=== PATIENT | female | born 1945 | race Caucasian/White ===

== ENCOUNTER 2020-06-09 17:08 | Observation (INO) | payer MEDICARE, SELFPAY ==
[2020-06-09] VITALS (7 sets, daily range): BP systolic 130–160; BP diastolic 58–83; PULSE 72–82; RESP 17–20; TEMP 36.6–36.7; O2SAT 96–98; BMI 29.6; BMI 30.4
--- NOTE | 2020-06-09 17:10 | CT_ITS ---
PROCEDURE: CT HEAD/BRAIN WO CON CLINICAL INDICATION: headache Severe headache COMPARISON: No exams were available for comparison TECHNIQUE: Axial images obtained. All CT scans at the facility use one or more dose reduction, viz: automated exposure control, ma/kV adjustment per patient size (including targeted exams where dose is matched to indication, i.e. head), or iterative reconstruction technique. FINDINGS: No midline shift, mass effect, intracranial hemorrhage, hydrocephalus, or extra-axial fluid collection is evident. The calvarium has an unremarkable appearance. Postsurgical changes of the right mastoid sinus with mild mucosal thickening of the mastoid sinus. No sinus air-fluid level. IMPRESSION: 1. No acute intracranial findings. 2. Postsurgical changes with mild mucosal thickening of the right mastoid sinus Dictated by: Harrison Melgoza MD 06/09/2020 18:23 Electronically signed by Harrison Melgoza MD in [place] 06/09/2020 18:23
--- NOTE | 2020-06-09 17:21 | XR_ITS ---
PROCEDURE: XR CHEST PORTABLE CLINICAL INDICATION: cough Shortness of breath, smoker COMPARISON: CXR CHEST(2 VIEWS-NOT PORTABLE) from 05/30/2017 XR CHEST PORTABLE from 02/04/2020 FINDINGS: Cardiomegaly. Prior CABG. No evidence of CHF. There is increased density in retrocardiac region suggesting small hiatal hernia. The lungs are clear. IMPRESSION: No acute finding, see above Dictated by: Harrison Melgoza MD 06/09/2020 18:27 Electronically signed by Harrison Melgoza MD in [facility] 06/09/2020 18:27
--- NOTE | 2020-06-09 17:23 | HMH.EDGENADL ---
ED Disposition Clinical Impression: VERÓNICA (acute kidney injury) Urinary tract infection Qualifiers: Urinary tract infection type: acute cystitis Hematuria presence: without hematuria Qualified Code(s): N30.00 - Acute cystitis without hematuria Headache Qualifiers: Headache type: other headache syndrome Qualified Code(s): G44.89 - Other headache syndrome Disposition: Admitted as Observation Condition on Discharge: Good Referrals: Provider,Referral, [Referring] - Time of Disposition: 19:31 - Critical Care Critical Care Time: No Attestation: On 06/09/20, the high probability of a clinically significant, sudden or life threatening deterioration of the following system(s) required my full and direct attention, intervention and personal management. The time I documented below is in addition to time spent performing reported procedures but includes the following listed in this critical care notation. Medical Decision Making - Medical Records Medical records reviewed: Yes: I reviewed the patient's medical records. - Matt Inquiry Pt receiving controlled substance: No Vital Signs: 06/09/20 17:09 06/09/20 18:25 06/09/20 19:00 Temperature 98 F Temperature Source Oral Pulse Rate [Left Radial] 82 81 Respiratory Rate 18 20 Blood Pressure [Right Arm] 130/77 130/77 144/71 H Blood Pressure Mean [Right Arm] 94 94 95 Blood Pressure Source [Right Arm] Automatic Cuff Blood Pressure Position [Right Arm] Sitting Sitting 02 Sat by Pulse Oximetry 98 97 Oxygen Delivery Method Room Air Room Air 06/09/20 19:30 Temperature Temperature Source Pulse Rate [Left Radial] 75 Respiratory Rate 18 Blood Pressure [Right Arm] 136/60 Blood Pressure Mean [Right Arm] 85 Blood Pressure Source [Right Arm] Blood Pressure Position [Right Arm] 02 Sat by Pulse Oximetry 96 Oxygen Delivery Method Room Air - Lab Data Lab Results 06/09/20 17:15: WBC 10.5, RBC 4.24, Hgb 12.9, Hct 37.6, MCV 88.9, MCH 30.5, MCHC 34.3, RDW 15.0, Plt Count 163, MPV 8.3, Neut % (Auto) 68.5, Lymph % (Auto) 25.6, [place] % (Auto) 3.6, Eos % (Auto) 1.8, Baso % (Auto) 0.4, Neut # (Auto) 7.2, Lymph # (Auto) 2.7, [place] # (Auto) 0.4, Eos # (Auto) 0.2, Baso # (Auto) 0.0 06/09/20 17:15: Sodium 139, Potassium 4.5, Chloride 107, Carbon Dioxide 19 L, Anion Gap 17.5 H, BUN 29 H, Creatinine 1.70 H, Estimated Creat Clear 39, Estimated GFR 29 L, Est GFR ( Amer) 35 L, Glucose 134 H, Calcium 8.7, Total Bilirubin 0.3, AST 21, ALT 16, Alkaline Phosphatase 75, Total Creatine Kinase 72, Troponin I < 0.01, Total Protein 7.2, Albumin 4.2, Globulin 3.0, Albumin/Globulin Ratio 1.4 06/09/20 19:13: Urine Color Straw, Urine Appearance Cloudy, Urine pH 5.5, Ur Specific [place] 1.010, Urine Protein Negative, Urine Glucose (UA) Negative, Urine Ketones Negative, Urine Blood 2+, Urine Nitrate Negative, Urine Bilirubin Negative, Urine Urobilinogen 0.2, Ur Leukocyte Esterase 3+ A Result diagrams: 06/09/20 17:15 06/09/20 17:15 Orders (Tests/Meds): ED MEDICATIONS Generic Name Dose Route Start Last Admin Trade Name Freq PRN Reason Stop Dose Admin Sodium Chloride 1,000 mls @ 999 mls/hr 06/09/20 18:00 06/09/20 18:12 Sod Chlor 0.9% 1000ml Bag IV 06/09/20 19:00 999 mls/hr .Q1H1M KIARA Administration Ceftriaxone Sodium 1 gm/ 50 mls @ 100 mls/hr 06/09/20 19:30 06/09/20 19:35 Sodium Chloride IV 06/23/20 19:29 100 mls/hr Q24H KIARA Administration Protocol Discontinued Medications Generic Name Dose Route Start Last Admin Trade Name Freq PRN Reason Stop Dose Admin Diphenhydramine HCl 25 mg 06/09/20 17:27 06/09/20 18:12 Benadryl 50mg/1ml Vial IV 06/09/20 17:28 25 mg ONCE ONE Administration Ketorolac Tromethamine 15 mg 06/09/20 17:27 06/09/20 18:12 Toradol 30mg/Ml Vial IV 06/09/20 17:28 15 mg ONCE ONE Administration Metoclopramide HCl 10 mg 06/09/20 17:27 06/09/20 18:12 Reglan 10mg/2ml Vial IVP 06/09/20 17:28 10 mg ONCE
[2020-06-09 17:29] LABS: Basophils % 0.4 % (0.1-2.0); Eosinophils # 0.2 K/mm3 (0.0-0.4); Eosinophils % 1.8 % (0.1-12.0); Hematocrit 37.6 % (37.0-47.0); Hemoglobin 12.9 g/dL (12.2-16.2); Lymphocytes # 2.7 K/mm3 (0.7-4.5); Lymphocytes % 25.6 % (10-50); Mean Corpuscular HGB Conc 34.3 g/dL (31.8-35.4); Mean Corpuscular Hemoglobin 30.5 pg (27.0-31.2); Mean Corpuscular Volume 88.9 fl (81-99); Mean Platelet Volume 8.3 fl (7.4-10.4); Monocytes # 0.4 K/mm3 (0.1-1.0); Monocytes % 3.6 % (1.7-9.3); Neutrophils # 7.2 K/mm3 (1.8-7.8); Neutrophils % 68.5 % (37.0-80.0); Platelet Count 163 K/mm3 (142-424); Red Blood Count 4.24 M/mm3 (4.20-5.40); White Blood Count 10.5 K/mm3 (4.8-10.8)
[2020-06-09 17:31] LABS: Alanine Aminotransferase 16 U/L (12-78); Albumin Level 4.2 g/dl (3.5-5.0); Albumin/Globulin Ratio 1.4 (1.1-1.8); Alkaline Phosphatase 75 U/L (38-126); Anion Gap 17.5 mEq/L (5-15); Aspartate Amino Transferase 21 U/L (14-36); Bilirubin,Total 0.3 mg/dl (0.2-1.3); Blood Urea Nitrogen 29 mg/dl (7-17); Calcium 8.7 mg/dl (8.4-10.2); Carbon Dioxide 19 mmol/L (22.0-30.0); Chloride 107 mmol/L (98-107); Creatine Kinase 72 U/L (30-135); Creatinine Clearance Estimated 39 mL/min (50-200); Estimated Glomerular Filt Rate 29 ml/min (>60); GFR (African American) 35 ML/MIN (>60); Glucose 134 mg/dl (74-100); Potassium 4.5 mmoL/L (3.5-5.1); Sodium 139 mmol/L (136-145); Total Protein,Serum 7.2 g/dl (6.3-8.2)
[2020-06-09 17:44] LABS: Troponin I < 0.01 ng/ml (0.00-0.034)
--- NOTE | 2020-06-09 19:15 | PC.NURSE ---
PT RESTING QUIETLY OFFERS NO C/O AT PRESENT
[2020-06-09 19:19] LABS: Microscopic, Urine URINE MICROSCOPIC (MICROSCOPIC)
--- NOTE | 2020-06-09 19:20 | ECG_ITS ---
APPROVED REPORT Exam: Resting ECG HR:75 bpm ECG Measurements Heart Rate 75 AXES [place] 316 P QRSd 70 QRS 38 QT 426 T 82 QTc 475 <Conclusion> Sinus rhythm with 1st degree AV block Nonspecific ST and T wave abnormality Prolonged QT Abnormal ECG Electronically signed by : Zheng Hahn, 06/11/2020 08:07:24
[2020-06-09 19:22] LABS: Appearance,Urine CLOUDY (Clear); Bilirubin,Urine Negative (Negative); Blood, Urine 2+ (Negative); Color,Urine STRAW (Yellow); Glucose,Urine (UA) Negative (Negative); Ketones,Urine Negative (Negative); Leukocyte Esterase,Urine 3+ (Negative); Nitrate,Urine Negative (Negative); PH,Urine 5.5 (5.0-8.5); Protein,Urine Negative (Negative); Urobilinogen,Urine 0.2 EU/dl (0.2)
[2020-06-09 21:09] LABS: Bacteria,Urine Trace /lpf; Trichomonas,Urine Occasional /lpf
--- NOTE | 2020-06-09 21:29 | PC.NURSE ---
report called to MIKE Jones
--- NOTE | 2020-06-09 21:49 | PC.NURSE ---
PT ARRIVED TO THE FLOOR VIA W/C FROM ED AT 2148.
--- NOTE | 2020-06-09 22:09 | HMH.HP ---
*Admission Date: 06/09/20 *Chief complaint: weakness *History of present illness: this pt presented to the ed 75-year-old female presenting to the emergency department with body aches, malaise, headache. For the last week she has felt generally unwell. Symptoms started with aches in her arms and her legs. Over the last few days she has had an intermittent headache. Described as throbbing, roaring, frontal in nature. She has taken aspirin, which seems to help. She has had headaches like this in the past, first was due to a kidney infection. This headache was not sudden or maximal in onset. She does not have numbness or weakness in her arms or legs. Denies any vision changes, neck pain, fevers, chills. No known sick exposures. She states that she is very concerned and has not been tested for COVID. n summary this is a 75-year-old female presenting to the emergency department with myalgias, headache, malaise. Patient is overall well-appearing on arrival. Vital signs are stable. Differential diagnoses include green headache, tension headache, infection like viral URI, urinary tract infection, COVID. Obtain CBC, CMP, chest x-ray, EKG, troponin profile, noncontrast head CT. Patient given IV fluid bolus, 15 mg of IV Toradol, 10 mg of IV Reglan, 4 mg of IV Zofran. On reassessment patient said that her headache had decreased by greater than 50%. No new or concerning neurologic findings. Laboratory results remarkable for elevated creatinine at 1.70. Baseline within normal. Urinalysis shows urinary tract infection. Patient given 1 g of IV Rocephin. Other laboratory results are generally unremarkable. Noncontrast head CT shows no intracranial abnormality. Chest x-ray unremarkable. Overall presentation is most consistent with UTI, decreased oral intake, acute kidney injury. Plan to continue IV fluids and recheck labs in the morning. Hospital medicine consulted for evaluation for admission and observation. pt admitted for ivf and abx and eval- H History I have reviewed the patient's past medical history: Yes Medical History: Reports:: Diabetes Mellitus Type 2 Denies:: Diabetes Mellitus Type 1 *Have you ever received a pneumonia vaccine?: No *Have you received a flu vaccine this season?: No - *Social History Smoking Status: Never smoker Alcohol Intake: never *Occupational Status:: other Housing: other Household Members: other *Travel in the last 8 weeks: None Family Hx:: Non-contributory Review of Systems - Review of Systems Review of systems:: pertinent systems reviewed and negative unless documented below - Constitutional Reports body ache(s), Reports headache(s), Denies fever(s) - Eyes Denies change in vision - ENT Denies sore throat - *Cardiovascular Denies chest pain at rest - *Respiratory Denies cough - *Gastrointestinal Denies abdominal pain - *Genitourinary Denies blood in urine - *Musculoskeletal Denies joint pain - Integumentary/Breasts Denies rash - *Neurologic Reports headache(s), Denies numbness, Denies dizziness - Psychiatric Denies thoughts of hurting/killing yourself Meds Home Medications Medication Instructions Recorded Confirmed Type Aspirin [Ecotrin] 325 mg PO DAILY 06/09/20 06/09/20 History Atorvastatin Calcium [Lipitor 80mg 80 mg PO HS 06/09/20 06/09/20 History Tablet] Clopidogrel Bisulfate [Plavix 75mg 75 mg PO DAILY 06/09/20 06/09/20 History Tab] Furosemide [Lasix 40mg tab] 40 mg PO DAILY 06/09/20 06/09/20 History Glimepiride 4 mg PO DAILY 06/09/20 06/09/20 History Lansoprazole [Prevacid] 40 mg PO DAILY 06/09/20 06/09/20 History Metformin HCl [Metformin HCl ER] 1,000 mg PO BID 06/09/20 06/09/20 History Metoprolol Tartrate [Lopressor 100 mg PO DAILY 06/09/20 06/09/20 History 100mg Tablet] Potassium Chloride 10 meq PO DAILY 06/09/20 06/09/20 History lisinopriL [Lisinopril 10mg Tab] 10 mg PO DAILY 06/09/20 06/09/20 History Allergies Allergy/AdvR
[2020-06-10 04:00] VITALS: BP 125/64; PULSE 74; RESP 18; TEMP 36.7; O2SAT 98
[2020-06-10 07:25] LABS: Chloride 111 mmol/L (98-107)
[2020-06-10 07:26] LABS: Basophils % 0.3 % (0.1-2.0); Eosinophils # 0.1 K/mm3 (0.0-0.4); Eosinophils % 2.1 % (0.1-12.0); Hematocrit 35.2 % (37.0-47.0); Hemoglobin 11.9 g/dL (12.2-16.2); Lymphocytes # 2.2 K/mm3 (0.7-4.5); Lymphocytes % 32.8 % (10-50); Mean Corpuscular HGB Conc 33.7 g/dL (31.8-35.4); Mean Corpuscular Hemoglobin 29.6 pg (27.0-31.2); Mean Corpuscular Volume 87.9 fl (81-99); Mean Platelet Volume 8.5 fl (7.4-10.4); Monocytes # 0.2 K/mm3 (0.1-1.0); Monocytes % 3.5 % (1.7-9.3); Neutrophils % 61.3 % (37.0-80.0); Platelet Count 136 K/mm3 (142-424); Potassium 3.9 mmoL/L (3.5-5.1); Red Blood Count 4.01 M/mm3 (4.20-5.40); Red Cell Distribution Width 14.9 % (11.5-17.5); Sodium 142 mmol/L (136-145); White Blood Count 6.6 K/mm3 (4.8-10.8)
[2020-06-10 07:29] LABS: Anion Gap 14.9 mEq/L (5-15); Blood Urea Nitrogen 22 mg/dl (7-17); Calcium 8.1 mg/dl (8.4-10.2); Carbon Dioxide 20 mmol/L (22.0-30.0); Creatinine Clearance Estimated 66 mL/min (50-200); Estimated Glomerular Filt Rate 54 ml/min (>60); GFR (African American) 65 ML/MIN (>60); Glucose 91 mg/dl (74-100)
--- NOTE | 2020-06-10 07:30 | PC.NURSE ---
PATIENT'S BED SCALE WOULD NOT WORK . SO WE WERE UNABLE TO OBTAIN CORRECT WEIGHT .
--- NOTE | 2020-06-10 07:36 | HMH.PHAVTE ---
[facility] Pharmacy VTE Monitoring - Patient Demographics Admission date: 06/09/20 Report Date: 06/10/20 Time: 07:36 Allergies/Adverse Reactions: Patient Allergies No Known Allergies Allergy (Unverified 11/05/17 14:18) Height: 1.7 m Weight: 85.729 kg Patient Problems: Current Active Problems UTI (urinary tract infection) (Acute) VERÓNICA (acute kidney injury) (Acute) Headache (Acute) - VTE Risk Labs: VTE Related Lab Results Hgb 11.9 g/dL (12.2-16.2) L 06/10/20 07:00 Hct 35.2 % (37.0-47.0) L 06/10/20 07:00 Plt Count 136 K/mm3 (142-424) L 06/10/20 07:00 BUN 22 mg/dl (7-17) H 06/10/20 07:00 Creatinine 1.00 mg/dl (0.52-1.04) D 06/10/20 07:00 Estimated Creat Clear 66 mL/min (50-200) 06/10/20 07:00 Was VTE Risk Assessment Performed: Yes - Prophylaxis VTE Prophylaxis Ordered?: Yes Types of VTE Prophylaxis: TEDS Knee High Location of Applied Device: Bilateral Lower Extremeties - VTE Diagnosis Confirmed Treatment or plan recommended: Continue Current Treatment
[2020-06-10 08:00] VITALS: BP 164/66; PULSE 75; RESP 18; TEMP 36.7; O2SAT 95
--- NOTE | 2020-06-10 10:39 | HMH.DCSUM ---
General - General Admission date:: 06/09/20 Discharge date: 06/10/20 HPI HPI: this pt presented to the ed 75-year-old female presenting to the emergency department with body aches, malaise, headache. For the last week she has felt generally unwell. Symptoms started with aches in her arms and her legs. Over the last few days she has had an intermittent headache. Described as throbbing, roaring, frontal in nature. She has taken aspirin, which seems to help. She has had headaches like this in the past, first was due to a kidney infection. This headache was not sudden or maximal in onset. She does not have numbness or weakness in her arms or legs. Denies any vision changes, neck pain, fevers, chills. No known sick exposures. She states that she is very concerned and has not been tested for COVID. n summary this is a 75-year-old female presenting to the emergency department with myalgias, headache, malaise. Patient is overall well-appearing on arrival. Vital signs are stable. Differential diagnoses include green headache, tension headache, infection like viral URI, urinary tract infection, COVID. Obtain CBC, CMP, chest x-ray, EKG, troponin profile, noncontrast head CT. Patient given IV fluid bolus, 15 mg of IV Toradol, 10 mg of IV Reglan, 4 mg of IV Zofran. On reassessment patient said that her headache had decreased by greater than 50%. No new or concerning neurologic findings. Laboratory results remarkable for elevated creatinine at 1.70. Baseline within normal. Urinalysis shows urinary tract infection. Patient given 1 g of IV Rocephin. Other laboratory results are generally unremarkable. Noncontrast head CT shows no intracranial abnormality. Chest x-ray unremarkable. Overall presentation is most consistent with UTI, decreased oral intake, acute kidney injury. Plan to continue IV fluids and recheck labs in the morning. Hospital medicine consulted for evaluation for admission and observation. pt admitted for ivf and abx and eval- Hospital Course Hospital Course: pt feels better this am - will follow withher pcp about her urine culture - reported to rn no current sexual activity will do 1x flagyl treatment - pt has oleg diet and activity in hospital and wishes to go home this am - denied echevarria this am - will hold lasix and k at this time sec to renal issues and ask pt to see pcp saturday Objective Vital signs: Temp Pulse Resp BP Pulse Ox 98.0 F 75 18 164/66 H 95 06/10/20 08:00 06/10/20 08:00 06/10/20 08:00 06/10/20 08:00 06/10/20 08:00 no acute distress - *Routine HEENT Exam Head: Present: normocephalic Eye: Present: EOMI, PERRL ENT: Present: mucous membranes dry - *Routine Neck Exam Absent: JVD - *Routine Respiratory Exam Present: CTA bilaterally - *Routine Cardiovascular Exam Present: RRR - *Routine Abdominal Exam Present: soft - *Routine Extremities Exam Absent: calf tenderness - Routine Back/Spine/Pelvis Exam Back/Spine: Absent: CVA tenderness - *Routine Skin Exam Present: intact - *Routine Neurological Exam Present: alert, oriented X3, CN II-XII intact - Routine Psychiatric Exam Present: normal affect Results Labs on day of discharge: Labs from last 24 hours 06/10/20 06/10/20 06/10/20 07:00 07:00 07:00 WBC 6.6 D RBC 4.01 L Hgb 11.9 L Hct 35.2 L MCV 87.9 MCH 29.6 MCHC 33.7 RDW 14.9 Plt Count 136 L MPV 8.5 Neut % (Auto) 61.3 Lymph % (Auto) 32.8 [place] % (Auto) 3.5 Eos % (Auto) 2.1 Baso % (Auto) 0.3 Neut # (Auto) 4.0 Lymph # (Auto) 2.2 [place] # (Auto) 0.2 Eos # (Auto) 0.1 Baso # (Auto) 0.0 Sodium 142 Potassium 3.9 Chloride 111 H Carbon Dioxide 20 L Anion Gap 14.9 BUN 22 H Creatinine 1.00 D Estimated Creat Clear 66 Estimated GFR 54 L Est GFR ( Amer) 65 D Glucose 91 D Hemoglobin A1c 7.0 H Calcium 8.1 L Total Bilirubin AST ALT
--- NOTE | 2020-06-10 11:13 | PC.NURSE ---
reviewed with pt that Dr. Horne recommends to discontinue Lasix and Potassium until her apt with Dr. Darvin Bowman on Saturday. Pt verbalized understanding.
--- NOTE | 2020-06-10 11:13 | HMH.PHAINT ---
DISCHARGE COUNSELING COMPLETED ON PATIENT. NEW PRESCRIPTION FOR KEFLEX SENT TO [facility] IN [place]. PATIENT IS TO CONTINUE ALL OTHER HOME MEDICATIONS WITH THE EXCEPTION OF POTASSIUM AND LASIX. PATIENT VERBALIZED UNDERSTANDING AND HAD NO QUESTIONS AT THIS TIME. -ELBA MONSALVE, ELIAND
[2020-06-11 13:58] LABS: Covid-19 Nasal PCR Sendout Lex Not Detected
== END 2020-06-10 11:10 | disposition home or self-care (01) ==
LOC: ER 20:17 → 2ND 22:40
PROVIDERS: Admitting Provider Emergency Medicine; Emergency Provider Emergency Medicine; PCP Internal Medicine; Visit Provider Emergency Medicine
DX: N39.0 Urinary tract infection, site not specified (principal); E11.9 Type 2 diabetes mellitus without complications; N17.9 Acute kidney failure, unspecified; A59.03 Trichomonal cystitis and urethritis; Z79.84 Long term (current) use of oral hypoglycemic drugs; Z79.82 Long term (current) use of aspirin; Z79.01 Long term (current) use of anticoagulants; Z79.899 Other long term (current) drug therapy
CPT/HCPCS: 36415; 70450; 71045; 80048; 80053; 81001; 82550; 83036; 84484; 85025; 87086; 87088; 87186; 93005; 96365; 96367; 96375; 99284; G0378; U0004